=== PATIENT | female | born 1970 | race Caucasian/White ===

== ENCOUNTER → 2016-08-29 | Outpatient (CLI) | payer OTHER | LOC: RAD 07:49 → LAB 07:49 | DX: R53.83 Other fatigue (principal); R53.81 Other malaise; E53.9 Vitamin B deficiency, unspecified; E78.2 Mixed hyperlipidemia; F32.89 Other specified depressive episodes; F33.0 Major depressive disorder, recurrent, mild; G43.009 Migraine without aura, not intractable, without status migrainosus; G43.011 Migraine without aura, intractable, with status migrainosus; G47.09 Other insomnia; H81.43 Vertigo of central origin, bilateral; K21.0 Gastro-esophageal reflux disease with esophagitis; M13.831 Other specified arthritis, right wrist; M13.871 Other specified arthritis, right ankle and foot; M51.24 Other intervertebral disc displacement, thoracic region; M53.84 Other specified dorsopathies, thoracic region; M54.2 Cervicalgia; M54.6 Pain in thoracic spine; M54.89 Other dorsalgia; N18.2 Chronic kidney disease, stage 2 (mild); T78.49XS Other allergy, sequela | CPT/HCPCS: 73110 ==

== ENCOUNTER → 2016-09-01 | Outpatient (CLI) | payer OTHER | LOC: CT 14:45 | DX: R10.11 Right upper quadrant pain (principal); R53.81 Other malaise; R53.83 Other fatigue; T78.49XS Other allergy, sequela; E53.9 Vitamin B deficiency, unspecified; E78.2 Mixed hyperlipidemia; F32.89 Other specified depressive episodes; F33.0 Major depressive disorder, recurrent, mild; G43.011 Migraine without aura, intractable, with status migrainosus; G43.009 Migraine without aura, not intractable, without status migrainosus; G47.09 Other insomnia; H81.43 Vertigo of central origin, bilateral; K21.0 Gastro-esophageal reflux disease with esophagitis; M13.831 Other specified arthritis, right wrist; M13.871 Other specified arthritis, right ankle and foot; M50.30 Other cervical disc degeneration, unspecified cervical region; M51.24 Other intervertebral disc displacement, thoracic region; M53.84 Other specified dorsopathies, thoracic region; M54.2 Cervicalgia; M54.6 Pain in thoracic spine; N18.2 Chronic kidney disease, stage 2 (mild); K46.9 Unspecified abdominal hernia without obstruction or gangrene | CPT/HCPCS: J7050; Q9962 ==

== ENCOUNTER → 2016-10-24 | Outpatient (CLI) | payer OTHER | LOC: KOH-I 10-21 15:15 | DX: M24.231 Disorder of ligament, right wrist (principal); M19.031 Primary osteoarthritis, right wrist | CPT/HCPCS: 73221 ==

== ENCOUNTER → 2020-09-02 | Outpatient (CLI) | payer OTHER ==
[~2020-09-02] MED LIST: AFRIN15 M1; EXCEDRIN MIGRA1 EACH PO; SINUS CONGESTI PO
== END ==
LOC: KOH-I 15:38
DX: J32.9 Chronic sinusitis, unspecified (principal); J34.2 Deviated nasal septum; J34.89 Other specified disorders of nose and nasal sinuses
CPT/HCPCS: 70486

== ENCOUNTER → 2020-11-13 | Day surgery (SDC) | payer OTHER | END | disposition home or self-care (01) | LOC: OR 06:56 | DX: J32.8 Other chronic sinusitis (principal); J34.3 Hypertrophy of nasal turbinates; J34.2 Deviated nasal septum; G43.009 Migraine without aura, not intractable, without status migrainosus; J45.909 Unspecified asthma, uncomplicated; K21.9 Gastro-esophageal reflux disease without esophagitis; M19.90 Unspecified osteoarthritis, unspecified site; F32.9 Major depressive disorder, single episode, unspecified; F41.9 Anxiety disorder, unspecified; Z91.011 Allergy to milk products; Z91.013 Allergy to seafood; Z88.5 Allergy status to narcotic agent; Z91.018 Allergy to other foods; Z79.82 Long term (current) use of aspirin; Z79.899 Other long term (current) drug therapy | CPT/HCPCS: C1726; J0171; J1100; J2250; J2405; J2550; J2704; J3010; J7030; J7050; J7120 ==

== ENCOUNTER 2021-09-01 19:52 | Emergency (ER) | payer OTHER ==
[2021-09-01] MEDS ORDERED: CYCLOBENZAPRINE10 MG PO (22:46)
[2021-09-01] MEDS ORDERED: IBUPROFEN600 MG PO (22:46)
== END 2021-09-01 23:10 | disposition home or self-care (01) ==
LOC: ER1 19:52
DX: M62.830 Muscle spasm of back (principal); Z88.5 Allergy status to narcotic agent; W19.XXXA Unspecified fall, initial encounter
CPT/HCPCS: 72128; 72131; 72192; 96372; 99283; J1100; J1885; J2360